=== PATIENT | female | born 1960 | race African-American/Black ===

== ENCOUNTER 2017-11-25 16:54 | Emergency (ER) | payer OTHER ==
[~2017-11-25] VITALS: Ht 175.3 cm; Wt 77.0 kg
[2017-11-25 17:04] VITALS: BP 115/78
== END 2017-11-25 18:54 | disposition left against medical advice (07) ==
LOC: ER 17:20
DX: R55 Syncope and collapse (principal); Z53.21 Procedure and treatment not carried out due to patient leaving prior to being seen by health care provider